=== PATIENT | female | born 1980 | race African-American/Black ===

== ENCOUNTER 2017-02-04 11:37 | Emergency (ER) | payer MEDICAID ==
[~2017-02-04] VITALS: Ht 157.5 cm; Wt 57.0 kg
[2017-02-04 12:55] VITALS: BP 126/78
[2017-02-04] MEDS ORDERED: KETOROLAC 30MG/ML VIAL IM ONE (15:45)
== END 2017-02-04 18:32 | disposition home or self-care (01) ==
LOC: ER 13:59
DX: M25.572 Pain in left ankle and joints of left foot (principal); F17.200 Nicotine dependence, unspecified, uncomplicated; F12.10 Cannabis abuse, uncomplicated; I10 Essential (primary) hypertension; Z88.0 Allergy status to penicillin; Z86.73 Personal history of transient ischemic attack (TIA), and cerebral infarction without residual deficits; W01.0XXA Fall on same level from slipping, tripping and stumbling without subsequent striking against object, initial encounter; Y93.89 Activity, other specified; Y99.8 Other external cause status; Y92.512 Supermarket, store or market as the place of occurrence of the external cause
CPT/HCPCS: 29515; 73610; 73630; 96372; 99284; J1885